=== PATIENT | female | born 1980 | race African-American/Black ===

== ENCOUNTER 2020-12-28 11:00 | Emergency (ER) | payer OTHER ==
[2020-12-28 11:07] VITALS: TEMP 98; BMI 32.3
[2020-12-28 11:35] LABS: HCG,QUALITATIVE URINE Negative
[2020-12-28] MEDS ORDERED: KETOROLAC TROMETHAMINE 30 MG/1 ML VIAL IVPUSH ONE (11:53)
[2020-12-28] MEDS ORDERED: SODIUM CHLORIDE 0.9% 1000 ML INFUS.BAG IV ONE (11:53)
[2020-12-28] MEDS ORDERED: KETOROLAC TROMETHAMINE 30 MG/1 ML VIAL ONE (11:57)
[2020-12-28 12:07] LABS: EPITHELIAL CELLS MANY /hpf
[2020-12-28 12:21] LABS: BASO % 4.6 % (0-2.0); EOS % 0.2 % (0-4.5); HEMATOCRIT 40.6 % (32.4-45.2); HEMOGLOBIN 13.6 GM/dl (10.7-15.3); MCHC 33.6 g/dl (32.0-36.0); MEAN CELL VOLUME 92.2 fl (80-96); MEAN PLT VOLUME 8.5 fl (7.5-11.1); MONO % 8.5 % (3.8-10.2); NEUT % 67.7 % (42.8-82.8); PLATELET COUNT 316 K/MM3 (134-434); WHITE BLOOD COUNT 12.2 K/mm3 (4.0-10.8)
[2020-12-28 13:09] VITALS: PULSE 52
[2020-12-28 13:17] LABS: ALBUMIN 4.4 g/dl (3.4-5.0); BILIRUBIN,TOTAL 0.3 mg/dl (0.2-1); CALCIUM 9.2 mg/dl (8.5-10); CREATININE 0.6 mg/dl (0.55-1.3); POTASSIUM 3.9 mmol/L (3.5-5.1); TOT PROT 7.8 g/dl (6.4-8.2)
[2020-12-28 15:43] VITALS: BP 132/77
== END 2020-12-28 16:40 | disposition home or self-care (01) ==
LOC: FER 11:00
PROC: 3E033NZ Introduction of Analgesics, Hypnotics, Sedatives into Peripheral Vein, Percutaneous Approach (ICD-10-PCS; principal; 2020-12-28)
PROC: 3E033GC Introduction of Other Therapeutic Substance into Peripheral Vein, Percutaneous Approach (ICD-10-PCS; 2020-12-28)
DX: M51.06 Intervertebral disc disorders with myelopathy, lumbar region (principal)
CPT/HCPCS: 36415; 72128-TC; 72131-TC; 74177-TC; 80053; 81003; 81015; 84703; 85025; 99285-25; Q9967